=== PATIENT | female | born 1975 | race Caucasian/White ===

== ENCOUNTER 2021-02-24 20:24 | Emergency (ER) | payer BC ==
[~2021-02-24] VITALS: Ht 160 cm; Wt 95.2 kg
[~2021-02-24 20:24] MED LIST: CARV6.25 PO; LEVSOD75 PO; LOSA25 PO
[2021-02-24 21:48] LABS: Hematocrit 44.5 % (33.0-51.0); Hemoglobin 13.9 g/dL (11.5-16.0); Mean Corpuscular HGB 28.8 pg (26.0-34.0); Mean Corpuscular HGB Conc 31.2 g/dL (31.5-36.5); Mean Corpuscular Volume 92 fL (80-100); Mean Platelet Volume 11.4 fL (9.1-12.4); Platelet Count 384 K/mm3 (150-400); RDW Coefficient Variation 14.1 % (11.7-14.2); RDW Standard Deviation 47.3 fL (35.1-46.3); Red Blood Cell Count 4.83 M/mm3 (3.80-5.20)
[2021-02-24 21:49] LABS: BASOPHILS ABSOLUTE AUTO 0.02 K/mm3 (0.00-0.23); BASOPHILS PERCENT AUTO 0 % (0-2); EOSINOPHILS PERCENT AUTO 0 % (0-6); IMMATURE GRAN ABSOLUTE AUTO 0.07 K/mm3 (0.00-0.10); IMMATURE GRAN PERCENT AUTO 1 % (0-1); LYMPHOCYTES ABSOLUTE AUTO 2.26 K/mm3 (0.84-5.20); LYMPHOCYTES PERCENT AUTO 20 % (21-46); MONOCYTES ABSOLUTE AUTO 0.51 K/mm3 (0.16-1.47); MONOCYTES PERCENT AUTO 5 % (4-13); NEUTROPHILS ABSOLUTE AUTO 8.23 K/mm3 (1.96-9.15); NEUTROPHILS PERCENT AUTO 74 % (41-73); NRBC ABSOLUTE 0.04 K/mm3 (0.00-0.02); NRBC Auto 0.4 /100 WBC (0.0-0.2); White Blood Cell Count 11.09 K/mm3 (4.00-11.30)
[2021-02-24 21:57] LABS: Alanine Aminotransfer (ALT/SGP 49 U/L (12-78); Albumin, Blood 3.1 g/dL (3.4-5.0); Albumin/Globulin Ratio 0.7 (0.8-1.8); Alk Phos 97 U/L (50-136); Anion Gap 5 mmol/L (6-16); Aspartate Aminotrans (AST/SGOT 55 U/L (12-37); Bilirubin, Total 0.3 mg/dL (0.1-1.0); Blood Urea Nitrogen 8 mg/dL (8-24); Bun/Creatinine Ratio 9.3 (12.0-20.0); CO2, Blood 34 mmol/L (21-32); Calcium, Blood 8.9 mg/dL (8.5-10.1); Chloride, Blood 99 mmol/L (98-108); Creatinine, Blood 0.86 mg/dL (0.40-1.00); Globulin, Blood 4.7 g/dL (2.2-4.0); Glomerular Filtration Rate >60 (60-); Glucose, Blood 115 mg/dL (70-99); Potassium, Blood 4.1 mmol/L (3.5-5.5); Sodium, Blood 138 mmol/L (136-145); Total Protein, Blood 7.8 g/dL (6.4-8.2)
[2021-02-25] MEDS ORDERED: ALMACONE SUSPE355 ML PO (01:32)
[2021-02-25] MEDS ORDERED: METO10 PO (01:32)
[2021-02-25] MEDS ORDERED: PROM12.5S PR (01:32)
== END 2021-02-25 01:56 | disposition home or self-care (01) ==
LOC: ER 20:24
PROVIDERS: Physician Assistant
DX: K29.70 Gastritis, unspecified, without bleeding (principal); U07.1 COVID-19; E86.0 Dehydration; I10 Essential (primary) hypertension; E03.9 Hypothyroidism, unspecified; Z85.850 Personal history of malignant neoplasm of thyroid; Z79.899 Other long term (current) drug therapy; Z79.890 Hormone replacement therapy; Z88.5 Allergy status to narcotic agent; Z88.8 Allergy status to other drugs, medicaments and biological substances
CPT/HCPCS: 36415; 80053; 83690; 85025; 96374; 96375; 99284-25; A9270; J1200; J2405; J2765; J7042

== ENCOUNTER → 2024-06-12 | Outpatient (CLI) | payer OTHER ==
[~2024-06-12] MED LIST changes: +ACYCLOVIR400 MG PO; +ALMACONE SUSPE355 ML PO; +METO10 PO; +PROM12.5S PR; +Prednisone10 MG PO; +SULFAMETHOXAZO1 EAC1 PO
== END ==
LOC: LAB 09:20 → LAB SHORT 09:20
DX: C83.31 Diffuse large B-cell lymphoma, lymph nodes of head, face, and neck (principal)
CPT/HCPCS: 83880

== ENCOUNTER 2024-09-03 15:57 | Inpatient (IN) | payer OTHER ==
[~2024-09-03] VITALS: Ht 160 cm; Wt 93.5 kg
[2024-09-03] MEDS ORDERED: NS 1,000 ML IV SCH (16:00)
[2024-09-03 16:22] LABS: Hematocrit 30.5 % (33.0-51.0); Mean Corpuscular HGB 33.9 pg (26.0-34.0); Mean Corpuscular HGB Conc 32.8 g/dL (31.5-36.5); Mean Corpuscular Volume 103 fL (80-100); Mean Platelet Volume 10.1 fL (9.1-12.4); NRBC ABSOLUTE 0.03 K/mm3 (0.00-0.02); NRBC Auto 0.6 /100 WBC (0.0-0.2); Platelet Count 337 K/mm3 (150-400); RDW Coefficient Variation 22.5 % (11.7-14.2); RDW Standard Deviation 84.9 fL (35.1-46.3); Red Blood Cell Count 2.95 M/mm3 (3.80-5.20); White Blood Cell Count 5.43 K/mm3 (4.00-11.30)
[2024-09-03 16:43] LABS: Albumin/Globulin Ratio 0.9 (0.8-1.8); Bilirubin, Total 0.3 mg/dL (0.1-1.0); Bun/Creatinine Ratio 18.4 (12.0-20.0); Calcium, Blood 7.8 mg/dL (8.5-10.1); Creatinine, Blood 0.65 mg/dL (0.40-1.00); Globulin, Blood 3.5 g/dL (2.2-4.0); Potassium, Blood 3.3 mmol/L (3.5-5.5); Total Protein, Blood 6.5 g/dL (6.4-8.2)
[2024-09-03 16:48] LABS: BASOPHILS PERCENT MAN 0 % (0-2); EOSINOPHILS PERCENT MAN 0 % (0-6); LYMPHOCYTES ABSOLUTE MAN 0.97 K/mm3 (0.84-5.20); LYMPHOCYTES PERCENT MAN 18 % (21-46); METAMYELOCYTE ABSOLUTE MAN 0.05 K/mm3 (0.00-0.00); METAMYELOCYTE PERCENT MAN 1 % (0-0); MONOCYTES ABSOLUTE MAN 0.38 K/mm3 (0.16-1.47); MONOCYTES PERCENT MAN 7 % (4-13); NEUTROPHILS ABSOLUTE MAN 4.01 K/mm3 (1.96-9.15); SEG NEUTROPHILS PERCENT MAN 74 % (41-73); TOTAL CELLS COUNTED 100
[2024-09-03 20:01] LABS: International Normalized Ratio 0.97; Prothrombin Time Results 10.4 Sec (9.7-11.5)
[2024-09-03] MEDS ORDERED: Dose Adjust by Pharmacy XX STA (20:14)
[2024-09-03] MEDS ORDERED: Heparin Sodium,Porcine/0.5 NS 500 ML IV SCH (20:15)
[2024-09-03 20:28] LABS: Anti-Xa UFH, PHA Monitoring <0.10 IU/mL
[2024-09-03 23:00] VITALS: BP 123/77
[2024-09-03] MEDS ORDERED: NS 1,000 ML IV ONE (23:00)
[2024-09-03] MEDS ORDERED: Ondansetron HCl 2 MG / ML 2ML Vial IV PRN (23:00)
[2024-09-03] MEDS ORDERED: FLU VACC TS2024-25(6MOS UP)/PF 45 MCG/0.5 ML SYRINGE IM ONE (23:00)
[2024-09-03 23:15] VITALS: BP 116/77
[2024-09-03 23:23] VITALS: BP 138/92
[2024-09-03 23:30] VITALS: BP 144/94
[2024-09-03] MEDS ORDERED: Potassium Chloride 40 MEQ in NS 250 ML IV ONE (23:30)
[2024-09-03] MEDS ORDERED: OMEP20ER PO (23:39)
[2024-09-03] MEDS ORDERED: LEVSOD100 PO (23:43)
[2024-09-04] VITALS (27 sets, daily range): BP systolic 104–147; BP diastolic 72–95
--- NOTE | 2024-09-04 00:43 | NUR ---
ASSUMPTION OF CARE/ TRANSFER TO ICU ASSUMED CARE OF PATIENT AT APPROXIMATELY 2320. PT ALERT AND ORIENTED X4, ANSWERS QUESTIONS APPROPRIATELY. PT FOLLOWS DIRECTION WHEN PROMPTED AND IS ABLE TO MAKE HER NEEDS KNOWN. PT MOVES EXTREMITIES EQUALLY BILATERALLY. PT TRANSFERED FROM THE ER GURNEY TO ICU BED VIA SBA. HR 90'S SINUS, MAP >65. PT ON 4LPM VIA NC, OXYGEN SATURATION >95%. PT STATES THAT SHE HAS OCCASIONAL MIDSTERNAL PAIN APPEARS TO CORRELATE WITH AMBULATION, PT DENIES PAIN WHILE RESTING IN BED. ABDOMEN SOFT, BOWEL TONES HYPOACTIVE. PT AMBULATES TO BEDSIDE COMMODE TO VOID, URINE RED TINGED WHICH PATIENT STATES IS NORMAL FOR HER POST CHEMO TREATMENT. PIV IN PLACE TO RAC. MEDIPORT ACCESSED TO RIGHT CHEST. HEPARIN INFUSING AT 18 UNITS/KG/HR, NS INFUSING AT 75MLS/HR. BED IN LOWEST POSITION, CALL LIGHT WITHIN REACH, FAMILY AT THE BEDSIDE. CARE CONTINUES.
[2024-09-04] MEDS ORDERED: Mag Hydrox/AL Hydrox/Simeth 30 ML UDC PO PRN (01:20)
[2024-09-04 03:22] LABS: BASOPHILS ABSOLUTE AUTO 0.06 K/mm3 (0.00-0.23); BASOPHILS PERCENT AUTO 1 % (0-2); EOSINOPHILS PERCENT AUTO 0 % (0-6); Hematocrit 27.2 % (33.0-51.0); Hemoglobin 9.1 g/dL (11.5-16.0); IMMATURE GRAN ABSOLUTE AUTO 0.03 K/mm3 (0.00-0.10); IMMATURE GRAN PERCENT AUTO 0 % (0-1); LYMPHOCYTES ABSOLUTE AUTO 0.89 K/mm3 (0.84-5.20); LYMPHOCYTES PERCENT AUTO 12 % (21-46); MONOCYTES ABSOLUTE AUTO 0.78 K/mm3 (0.16-1.47); MONOCYTES PERCENT AUTO 10 % (4-13); Mean Corpuscular HGB Conc 33.5 g/dL (31.5-36.5); Mean Corpuscular Volume 102 fL (80-100); Mean Platelet Volume 9.9 fL (9.1-12.4); NEUTROPHILS ABSOLUTE AUTO 5.87 K/mm3 (1.96-9.15); NEUTROPHILS PERCENT AUTO 77 % (41-73); Platelet Count 325 K/mm3 (150-400); RDW Coefficient Variation 22.6 % (11.7-14.2); RDW Standard Deviation 84.2 fL (35.1-46.3); Red Blood Cell Count 2.68 M/mm3 (3.80-5.20); White Blood Cell Count 7.63 K/mm3 (4.00-11.30)
[2024-09-04 04:27] LABS: Albumin, Blood 2.7 g/dL (3.4-5.0); Albumin/Globulin Ratio 0.9 (0.8-1.8); Bilirubin, Total 0.2 mg/dL (0.1-1.0); Bun/Creatinine Ratio 14.3 (12.0-20.0); Creatinine, Blood 0.56 mg/dL (0.40-1.00); Globulin, Blood 3.1 g/dL (2.2-4.0); Total Protein, Blood 5.8 g/dL (6.4-8.2)
--- NOTE | 2024-09-04 05:49 | NUR ---
SHIFT SUMMARY NO ACUTE CHANGES THIS SHIFT. PT CONTINUES TO REST IN BED, SLEEPING BUT AROUSABLE. PT ORIENTED X4, ANSWERS QUESTIONS APPROPRIATELY, FOLLOWS DIRECTION WHEN PROMPTED AND IS ABLE TO MAKE HER NEEDS KNOWN. PT REPOSITIONS SELF IN BED FOR COMFORT, STANDS AND PIVOTS TO BEDSIDE COMMODE. HR 90'S SINUS, MAP >65. PT ON 3LPM VIA NC, OXYGEN SATURATION >90%. ABDOMEN SOFT, BOWEL TONES HYPOACTIVE. PT STANDS AND PIVOTS TO BEDSIDE COMMODE TO VOID. PIV IN PLACE TO RAC, MEDIPORT ACCESSED TO RIGHT CHEST. NS INFUSING AT 75MLS/HR, HEPARIN INFUSING AT 18UNITS/KG/HR. BED IN LOWEST POSITION, CALL LIGHT WITHIN REACH. PT FAMILY AT THE BEDSIDE. CARE CONTINUES.
[2024-09-04] MEDS ORDERED: Levothyroxine Sodium 0.1 MG Tab PO SCH (06:00)
[2024-09-04] MEDS ORDERED: Omeprazole 20 MG CapCR PO SCH (06:00)
--- NOTE | 2024-09-04 07:00 | NUR ---
0700 ASSUMPTION OF CARE PATIENT IS ALERT AND ORIENTED X4. MAEW HOWEVER DID NOT PUSH DOWN HARD ON FEET MOBILITY TEST AND STRENGTH. PT IS ABLE TO VOID HOWEVER USING A BEDPAN D/T DVT FOUND IN LEG FROM DUPLEX STUDY THIS AM. PT HAS HEPARIN GTT GOING TO PIV AND IV FLUID X 1 LITER GOING TO MEDAPORT. KAYCEE REGION IS RED, HISTORY OF YEAST INFECTIONS IN PAST. NO ACUTE PAIN AT THIS TIME. LUNG SOUNDS ARE CLEAR AND HEART TONES ARE DISTANT TO ASCULTATION. ABD BT POSITIVE X 4 QUAD. PT IS NPO FOR NOW TILL SHE GOES FOR A THROMBECTOMY. OCTAVIANO POMPA WAS AT BEDSIDE TODAY TO GET CONSENT FOR PROCEDURE.
[2024-09-04] MEDS ORDERED: Carvedilol 25 MG Tab PO SCH (08:00)
[2024-09-04] MEDS ORDERED: PredniSONE 10 MG Tab PO SCH (09:00)
[2024-09-04] MEDS ORDERED: Dose Adjust by Pharmacy XX STA (09:43)
[2024-09-04] MEDS ORDERED: Midazolam HCl 1MG / ML 2ML Vial ONE (12:55)
[2024-09-04] MEDS ORDERED: FentaNYL Citrate 50 MCG/ML 2 ML Injection ONE (12:56)
[2024-09-04] MEDS ORDERED: NS 1,000 ML IV ONE (12:56)
--- NOTE | 2024-09-04 15:27 | NUR ---
update: patient is back to room from going to the IR at 1245. The heparin was stopped at 1250 and restarted by IR at 1315. IVF is at tko now to [facility]. pt came back with a right femoral perc close. It is soft and no hematoma present. peripheral pulses present to right LE cap refill less than 3 sec. patient complains of no pain at this time. She remains supine for at least 2 hrs. Family came in to bedside.
--- NOTE | 2024-09-04 17:23 | NUR ---
UPDATE PATIENTS RIGHT GROIN SITE HAS BEEN WITHOUT A HEMATOMA AND ONLY A SMALL PIN TIP BLOOD SPOT THAT HAS NOT CHANGED SINCE SHE CAME BACK FROM IR. SHE REMAINS ON THE HEPARIN GTT AT 18U/KG/HR. PATIENT IS NOW UP STILL SUPINE BUT HEAD OF BED UP TO 10 DEGREE'S. SHE IS EATTING SOFT FULL LIQUID AT THIS TIME AND CLEAR WATER. VS REMAIN STABLE AND AFEBRILE. NO ACUTE CHANGES ON OXYGENATON WHICH HOLDS AT 96% ON 3L NC. LUNGS CLEAR T/O AND DIM IN BASES. FAMILY HAS BEEN AT BEDSIDE.
--- NOTE | 2024-09-04 17:52 | NUR ---
SPOKE WITH ABOUT SKIN SPOKE WITH DR SMITH ABOUT PT'S RED KAYCEE / LABIA. PT IS GOING TO GET A DOSE OF DIFLUCAN 1 TIME. PATIENT HAS BEEN VOIDING VIA BED ROSE AND CURRENTLY A PURWICK IS IN PLACE HOWEVER IT DOES OVER FLOW WITH HER VOIDS TOO. SHE HAS BEEN LOG ROLLED 2 TIMES TO CLEAN UP INCONTINENCE THIS EVENING D/T THE OVER FLOW OF URINE.
[2024-09-04] MEDS ORDERED: Fluconazole 100 MG Tab PO ONE (17:55)
--- NOTE | 2024-09-04 20:00 | NUR ---
ASSUMED CARE OF PT AT 1900. REPORT RECEIVED AT BEDSIDE. PT PRESENTS IN BED. ALERT AND ORIENTED. PLEASANT AND COOPERATIVE WITH CARE AND ASSESSMENT. RIGHT GROIN SITE ACCESS CHECKED. NO HEMATOMA OR OOZING TO NOTE. WILL REVIEW CHART AND PLAN OF CARE FOR THIS PT.
--- NOTE | 2024-09-04 22:37 | NUR ---
RIGHT GROIN SITE WNL. NO HEMATOMA OR OOZING TO NOTE. PT HAS HAD SMALL EMESIS THIS EVENING. HAVE MEDICATED PT WITH 4 MG ZOFRAN, AND MAALOX. ALSO PROVIDED PT WITH FEW CRACKERS. PT NO LONGER HAS NAUSEA AT THIS TIME. WILL CONTINUE TO MONITOR.
[2024-09-05] VITALS (12 sets, daily range): BP systolic 89–134; BP diastolic 62–87
--- NOTE | 2024-09-05 01:17 | NUR ---
RIGHT GROIN SITE CHECKED. NO HEMATOMA OR OOZING. PT MOVES ABOUT BED ON HER OWN. NO COMPLAINTS OF N/V AT THIS TIME. NO COMPLAINTS OF CHEST PAIN VOICED.
[2024-09-05 05:28] LABS: BASOPHILS ABSOLUTE AUTO 0.05 K/mm3 (0.00-0.23); BASOPHILS PERCENT AUTO 1 % (0-2); EOSINOPHILS PERCENT AUTO 0 % (0-6); Hematocrit 26.1 % (33.0-51.0); Hemoglobin 8.6 g/dL (11.5-16.0); IMMATURE GRAN ABSOLUTE AUTO 0.03 K/mm3 (0.00-0.10); IMMATURE GRAN PERCENT AUTO 0 % (0-1); LYMPHOCYTES ABSOLUTE AUTO 1.19 K/mm3 (0.84-5.20); LYMPHOCYTES PERCENT AUTO 17 % (21-46); MONOCYTES ABSOLUTE AUTO 0.97 K/mm3 (0.16-1.47); MONOCYTES PERCENT AUTO 14 % (4-13); Mean Corpuscular HGB 33.2 pg (26.0-34.0); Mean Corpuscular Volume 101 fL (80-100); Mean Platelet Volume 10.9 fL (9.1-12.4); NEUTROPHILS PERCENT AUTO 67 % (41-73); Platelet Count 299 K/mm3 (150-400); RDW Coefficient Variation 22.3 % (11.7-14.2); RDW Standard Deviation 81.7 fL (35.1-46.3); Red Blood Cell Count 2.59 M/mm3 (3.80-5.20); White Blood Cell Count 6.84 K/mm3 (4.00-11.30)
[2024-09-05 05:50] LABS: Albumin, Blood 2.5 g/dL (3.4-5.0); Albumin/Globulin Ratio 0.9 (0.8-1.8); Bilirubin, Total 0.3 mg/dL (0.1-1.0); Bun/Creatinine Ratio 14.9 (12.0-20.0); Calcium, Blood 7.9 mg/dL (8.5-10.1); Creatinine, Blood 0.54 mg/dL (0.40-1.00); Globulin, Blood 2.9 g/dL (2.2-4.0); Potassium, Blood 3.6 mmol/L (3.5-5.5); Total Protein, Blood 5.4 g/dL (6.4-8.2)
--- NOTE | 2024-09-05 06:23 | NUR ---
PT HAS NO COMPLAINTS OF CHEST PAIN OR PRESSURE. NO PAIN IN LEG. MAINTAINS > 90 PERCENT SATURATION ON 2 L/M O2 PER NASAL CANNULA. HAVE REMOVED PUREWICK AND HAD PT UP TO BEDSIDE COMMODE. PT VOIDS QUANTITY SUFFICIENT. HAVE DONE OTHOSTATIC BLOOD PRESSURES WITH NO SIGNIFICANT CHANGES TO NOTE. WILL CONTINUE TO MONITOR PT, AND WILL REPORT OFF TO ONCOMING RN.
--- NOTE | 2024-09-05 07:45 | NUR ---
ASSUMPTION OF CARE: PATIENT RESTING QUIETLY IN BED WITH HER PARENTS AT THE BEDSIDE. PATIENT DENIES NAUSEA/VOMITING AT THIS TIME. PATIENT'S VITALS ARE STABLE WITH MAPS >65, SPO2 >96%, AND HR IN THE 70-80S. PATIENT CURRENTLY ON 2L OF O2 VIA NC. PATIENT DOES NOT REPORT SHORTNESS OF BREATH OR DIFFICULTY BREATHING. BREATHS ARE EVEN AND REGULAR AT THIS TIME WITH NO ACUTE DISTRESS NOTED. HEPARIN GTT INFUSING AT 18 U/KG/HR. TKO INFUSING INTO HER MEDIPORT. PATIENT DENIES NEEDS AT THIS TIME.
[2024-09-05] MEDS ORDERED: Rivaroxaban 10 MG Tab PO SCH (08:00)
--- NOTE | 2024-09-05 09:32 | NUR ---
PATIENT GAVE VERBAL CONSENT TO ALLOW THIS STUDENT NURSE TO ADMINISTER MEDICATIONS.
[2024-09-05] MEDS ORDERED: FURO20 PO (11:00)
[2024-09-05] MEDS ORDERED: XARELTO15 MG PO (11:02)
[2024-09-05] MEDS ORDERED: ENTRESTO 24 MG1 EACH PO (11:03)
[2024-09-05] MEDS ORDERED: XARELTO20 MG PO (11:03)
--- NOTE | 2024-09-05 14:33 | NUR ---
DISCHARGE SUMMARY: PER ORDERS, PATIENT READY FOR DISCHARGE. PATIENT COMPLETED HOME O2 EVALUATION AND QUALIFIED FOR HOME O2. [facility] DELIVERED PORTABLE TANK PRIOR TO DISCHARGE. [facility]IENT REQUEST. PATIENT REPORTED THAT SHE COORDINATED WITH THE [facility] AND WILL BE ABLE TO RECEIVE HER WBC STIMULATOR SHOT TODAY. FAMILY AT BEDSIDE THROUGHOUT THE SHIFT. THEY ARE SUPPORTIVE OF THE PATIENT AND HELPFUL WITH ASSISTING IN PATIENT CARE. PATIENT AMBULATED IN THE ROOM WITH RT. PATIENT DENIED SHORTNESS OF BREATH OR DIFFICULTY BREATHING THROUGHOUT THE SHIFT. SPO2 >90%. PATIENT STAYED ON 1L AT REST AND 2L WITH AMBULATION. VITALS REMAINED STABLE WITH MAPS >65, HR IN THE 70S-80S AND SBP IN THE 110S-120S. PATIENT DENIED DIZZINESS OR LIGHTHEADEDNESS AT REST OR WITH AMBULATION. PATIENT DISCHARGED IN WHEELCHAIR WITH O2. FAMILY PROVIDING TRANSPORT. THIS RN ACCOMPANIED PATIENT TO [facility]. PATIENT STABLE AT TIME OF DISCHARGE.
== END 2024-09-05 15:14 | disposition home or self-care (01) | DRG 163 ==
LOC: ER 15:57 → ICUE 15:58
PROVIDERS: Internal Medicine; Physician Assistant; Student in an Organized Health Care Education/Training Program; ADMIT Internal Medicine
PROC: X2CY3T7 Extirpation of Matter from Great Vessel using Computer-aided Mechanical Aspiration, Percutaneous Approach, New Technology Group 7 (ICD-10-PCS; principal; 2024-09-04)
PROC: B31T1ZZ Fluoroscopy of Left Pulmonary Artery using Low Osmolar Contrast (ICD-10-PCS; 2024-09-04)
PROC: B31S1ZZ Fluoroscopy of Right Pulmonary Artery using Low Osmolar Contrast (ICD-10-PCS; 2024-09-04)
DX: I26.99 Other pulmonary embolism without acute cor pulmonale (principal); J96.01 Acute respiratory failure with hypoxia; C83.30 Diffuse large B-cell lymphoma, unspecified site; I82.432 Acute embolism and thrombosis of left popliteal vein; I82.452 Acute embolism and thrombosis of left peroneal vein; I10 Essential (primary) hypertension; I35.0 Nonrheumatic aortic (valve) stenosis; E03.9 Hypothyroidism, unspecified; Z79.890 Hormone replacement therapy; Z88.5 Allergy status to narcotic agent; Z88.8 Allergy status to other drugs, medicaments and biological substances; Z79.52 Long term (current) use of systemic steroids; Z79.2 Long term (current) use of antibiotics; Z85.850 Personal history of malignant neoplasm of thyroid
CPT/HCPCS: 71045; 71260; 76937; 80053; 83880; 84484; 84703; 85025; 85379; 85520; 85610; 85730; 93005; 93010; 93308; 93321; 93356; 93970; 94761; 96361; 96365-59; 99152; 99153; 99285-25; A9270; C1757; C1760; C1769; C1887; C1894; J1644; J2250; J2405; J3010; J3480; J7030; J7050; J7512; Q9967